=== PATIENT | male | born 1955 | race Caucasian/White ===

== ENCOUNTER 2024-03-04 07:48 | Day surgery (SDC) | payer MEDICARE, MEDICAID ==
[~2024-03-04] VITALS: Ht 170.2 cm; Wt 88.5 kg
[2024-03-04] MEDS ORDERED: GLUCOSE (DEXTROSE) ORAL GEL -Adults PO PRN (09:00)
[2024-03-04] MEDS ORDERED: D5W 1,000 ML IV PRN (09:00)
[2024-03-04] MEDS ORDERED: INSULIN LISPRO SLIDING SCALE 100 UNITS/ML, 3 ML VIAL (humaLOG) SUBCUT PRN (09:00)
[2024-03-04] MEDS ORDERED: DEXTROSE 50%-WATER 50 ML DISP.SYRIN IVP PRN (09:00)
[2024-03-04 13:23] VITALS: BP_SYST 155; PULSE 62; RESP 20; TEMP 98; O2SAT 95
== END 2024-03-04 08:59 | disposition home or self-care (01) ==
LOC: SDS 07:48 → SMU 07:56 → SDS 08:59
PROVIDERS: ATTEND Internal Medicine Gastroenterology
DX: Z12.11 Encounter for screening for malignant neoplasm of colon (principal); Z53.8 Procedure and treatment not carried out for other reasons
CPT/HCPCS: 82948